=== PATIENT | female | born 1990 ===

== ENCOUNTER 2018-03-07 01:22 | Inpatient (IN) | payer MEDICAID, OTHER ==
[2018-03-07 01:22] VITALS: BMI 27.4
[2018-03-07 01:39] VITALS: O2SAT 97
[2018-03-07] MEDS ORDERED: Bacitracin Ointment 30 GM TUBE TOP PRN (03:49)
--- NOTE | 2018-03-07 03:53 | C.PDOC ---
History Of Present Illness 27 year old female brought in by EMS, transferred from [facility] for psychiatric admission. Patient has a history of depression. On arrival patient complains of irritation to her genital area after having catheter placed. No fever. Time Seen by Provider: 03/07/18 01:44 Chief Complaint (Nursing): Psychiatric Evaluation History Per: Patient History/Exam Limitations: no limitations Onset/Duration Of Symptoms: Days Current Symptoms Are (Timing): Still Present Past Medical History Reviewed: Historical Data, Nursing Documentation, Vital Signs Vital Signs: Last Vital Signs Temp 98.2 F 03/07/18 01:34 Pulse 75 03/07/18 01:34 Resp 20 03/07/18 01:34 BP 120/82 03/07/18 01:34 Pulse Ox 97 03/07/18 03:55 - Medical History PMH: Anemia, Anxiety, Bipolar Disorder, Depression, Seizures - [employer] Procedures MONITORING NOS (08/19/14) Family History: States: Unknown Family Hx - Social History Hx Tobacco Use: No Hx Alcohol Use: Yes Hx Substance Use: Yes - Immunization History Hx Tetanus Toxoid Vaccination: No Hx Influenza Vaccination: No Hx Pneumococcal Vaccination: No Review Of Systems Constitutional: Negative for: Fever Genitourinary: Positive for: Other (discomfort near catheter placement) Psych: Positive for: Depression Physical Exam - Physical Exam Appears: Non-toxic, No Acute Distress Skin: Warm, Dry, No Rash Head: Normacephalic, Abrasion (multiple abrasions and excoriations to the head and neck) Eye(s): bilateral: Normal Inspection Oral Mucosa: Moist Neck: Normal ROM Chest: Symmetrical Cardiovascular: Rhythm Regular, No Murmur Respiratory: Normal Breath Sounds, No Rales, No Rhonchi, No Wheezing Gastrointestinal/Abdominal: Soft, No Tenderness, No Guarding Pelvic: Normal External Exam (with no swelling to the urethra, no bleeding) Extremity: Bilateral: Atraumatic, Normal Color And Temperature, Normal ROM Neurological/Psych: Oriented x3 ED Course And Treatment O2 Sat by Pulse Oximetry: 97 (RA) Pulse Ox Interpretation: Normal Medical Decision Making Medical Decision Making: Time: 2:37 Plan: Patient already evaluated and medically cleared for psychiatric admission. Dr. Dowd to take over care. Disposition Discussed With : Ulysses Dowd Doctor Will See Patient In The: Hospital - Disposition Disposition: HOSPITALIZED Disposition Time: 02:37 Condition: GOOD - Clinical Impression Clinical Impression: Depression - PA / [employer] / Resident Statement MD/DO has reviewed & agrees with the documentation as recorded. - Scribe Statement The provider has reviewed the documentation as recorded by the Scribe (Billie Borja) All medical record entries made by the Scribe were at my direction and personally dictated by me. I have reviewed the chart and agree that the record accurately reflects my personal performance of the history, physical exam, medical decision making, and the department course for this patient. I have also personally directed, reviewed, and agree with the discharge instructions and disposition.
--- NOTE | 2018-03-07 05:30 | PCM.BM ---
<KearaDoc - Last Filed: 03/07/18 05:29> Treatment Plan Problems - Problems identified on initial assessmt Depression Date Initiated: 03/07/18 Time Initiated: 03:15 Assessment reference: NA Status: Active Self harm Date Initiated: 03/07/18 Time Initiated: 03:15 Assessment reference: NA Status: Active Treatment assets and liabiliti Patient Assests: negotiates basic needs Patient Liabilities: poor support system, substance abuse (Cocaine, THC) - Milieu Protocol Maintain good personal hygiene: daily Encourage regular showers, daily Remind patient to perform daily oral care, every shift Assist patient to perform ADL's Conduct patient checks and document Observation sheet: Q15 minutes Maintain personal safety: every shift Educate patient to report safety concerns to staff, every shift Monitor environment for contraband/sharps Medication safety: Monitor for expected outcome, potential side effects: every shift, Assess barriers to learning: every shift, Assess readiness for medication education: every shift <Flash Jean - Last Filed: 03/08/18 10:57> - Diagnosis (1) Bipolar 1 disorder, depressed, severe Status: Acute Interventions: 03/08/18 10:58 * Assess/adjust medications daily and /or as needed * See patient on an individual basis 7x/week to assess level of manic behaviors and stability * Discuss risks, benefits, side effects and alternatives of medications * (2) Alcohol intoxication Status: Acute Interventions: 03/08/18 10:58 * Assess 7x/week regarding severity of withdrawal * Educate regarding risks, benefits, side effects and alternatives of medications * Use Motivational Interviewing for abstinence * Use CBT for relapse prevention * Medication management for withdrawal symptoms * Encourage medication assisted treatment * <Celia Alexander - Last Filed: 03/08/18 11:38> Family Contact Family involvement: Family/SO is involved Family contact: Patient declines to allow family contact at present - Goals for Treatment Patient goals for treatment: "I need to go to therapy." Discharge/Continuing Care - Education Needs Education Needs: Patient Medication, Patient Coping Skills - Discharge Discharge Criteria: Tolerates medication w/o severe side effects, Free of Suicidal thoughts, Reduction of target symptoms Discharge to:: Home - Treatment Team Participation Discussed with Family/SO: No Was Patient/Family/SO present at Treatment Team Meeting: Yes
[2018-03-07 06:26] VITALS: RESP 20
--- NOTE | 2018-03-07 10:49 | PCM.PSYCH ---
Initial Psychiatric Evaluation - Initial Psychiatric Evaluation Type of Admission: Voluntary Legal Status: Capacity Chief Complaint (in patient's own words): "I was depressed." History of Present Illness and Precipitating Events: This is a 27 year old female, who is employed and lives with joleen, who transferred from [facility] for psychiatric admission. She went to the ED because she was depressed and she self-harmed. Patient stated she heard something that made her feel depressed so she started drinking. She states she does not remember what happened after she started drinking. Patient has multiple scratches and deep lacerations on her face and around her neck. She states she has been feeling very anxious lately. She has a lot of thoughts running through her head and she cannot sleep at night. She states she has had days where she will not sleep for 3 days and then will crash. When she crashes, she states she feels very depressed. At night, when she cannot sleep, she states she will watch tv, walk her dog, or wake up her fiance to talk. Patient feels this is impacting her relationship with her joleen. Patient denies paranoia, visual hallucinations, and auditory hallucinations. Patient has past history of psychiatric hospitalization at age of [age] years old. Patient stated she followed up with a psychiatrist following discharge but has not seen a doctor in several months. At age 20, patient overdosed on Ibuprofen because she was feeling depressed her father was being deported. Patient states she uses marijuana to help with her anxiety. Patient states she does not remember taking cocaine and does not know why it was in her system. Patient states she stopped drinking 7 months ago and last night was her first drink. She does not know how much alcohol she consumed. medical history: seizure disorder psych history: Psychiatric Admission at age 20y/o Social history: Works as a Credit Clerk. Lives with joleen and a friend. Current Medications: Active Medications Generic Name Dose Route Start Last Admin Trade Name Freq PRN Reason Stop Dose Admin Bacitracin 1 gm 03/07/18 03:49 Bacitracin TOP Q6H PRN superficial cut Past Psychiatric History - Past Psychiatric History Previous Treatment History: Inpatient At [facility] hospital: [facility] Date: 09/20/11 Duration: 3 days Nature of Treatment: Depression Pertinent Medical Hx (Current Medical&Sleep Prob, Allergies): Allergies Allergy/AdvReac Type Severity Reaction Status Date / Time No Known Allergies Allergy Verified 08/19/17 13:54 Gabapentin 1 tab PO DAILY 03/07/18 Klonopin 1 tab PO DAILY 03/07/18 Lisinopril 1 tab PO DAILY 03/07/18 lamoTRIgine [LaMICtal] 25 mg PO DAILY 03/07/18 Review of Systems - Review of Systems All systems: reviewed and no additional remarkable complaints except - Psychiatric Psychiatric: Abnormal Sleep Pattern, Anxiety, Change in Appetite, Depression, Irritability, Mood Swings, Suicidal Ideation. absent: Auditory Hallucinations, Hallucinations, Homicidal Ideation, Paranoia, Visual Hallucinations Mental Status Examination - Personal Presentation Personal Presentation: Looks stated age Additional comments: Multiple abrasions and lacerations on face and around neck. - Affect Affect: Broad, Depressed - Motor Activity Motor Activity: Calm - Reliability in Providing Information Reliability in Providing Information: Fair - Speech Speech: Organized - Mood Mood: Depressed, Anxious - Formal Thought Process Formal Thought Process: Flight of ideas - Obsessions/Compulsions Obsessions: No Compulsions: No - Cognitive Functions Orientation: Person, Place, Situation Sensorium: Alert Attention/Concentration: Attentive Abstract Thinking: [place] Estimate of Intelligence: Below average Judgement: Imparied, as evidence by: Poor judgement, Imparied, as evidence by: Lack of insight into illness - Risk Risk: Suicidal, Diminished functioning - Strength & Assets Inventory Strength & Assets Inventory: Family support DSM 5 DX - DSM 5 DSM 5 Diagnosis: Bipolar Disorder, mixed severe without psychotic features Alcohol use disorder moderate - Recommended/Plan of Treatment Treatment Recommendations and Plan of Treatment: Bipolar Disorder, mixed severe without psychotic features Alcohol use disorder moderate Start Depakote 250mg BID Start Trazodone 50mg for sleep Neurontin 100 mg PO TID Ativan 1 mg PO Q6 hr prn All risks, benefits and alternatives of the meds discussed, and the pt agreed and understood. Attend groups and activities Individual therapy daily Psychoeducation and support daily Encourage compliance with meds and after care Refer to outpatient program Teach healthy lifestyle methods, i.e. diet, exercise, meditation - Smoking Cessation Smoking Cessation Initiated: No
[2018-03-07] MEDS: Divalproex 250 mg DR Tab PO SCH ×2 (14:03→17:18)
[2018-03-08] MEDS: Divalproex 250 mg DR Tab PO SCH (10:40)
--- NOTE | 2018-03-08 10:57 | PCM.PYCHPN ---
Psychiatric Progress Note - Psychiatric Progress Note Patient seen today, length of contact: 15 min Patient Chief Complaint: "I m still feeling depressed." Problems Identified/Issues Discussed: Patient seen and evaluated, chart reviewed and discussed with the nurse. As per the staff, patient still appears depressed and withdrawn. Patient still reports depressed mood and reports at times feelings of hopelessness or helplessness. she reports some improvement in her racing thoughts, irritability and agitation. She reports headaches from the medications. She denies any auditory or visual hallucinations or any psychotic symptoms. She is compliant with medications and denies any side effects. She needs some more time for stabilization. Supportive therapy and psychoeducation were given. Medication Change: Yes (Increase Depakote) Medical Record Reviewed: Yes Mental Status Examination - Cognitive Function Orientation: Person, Place, Situation Memory: Intact Attention: WNL Concentration: Poor Association: WNL Fund of Knowledge: Poor - Mood Mood: Depressed, Anxious - Affect Affect: Broad, Depressed - Speech Speech: Soft - Formal Thought Process Formal Thought Process: Flight of ideas - Suicidal Ideation Suicidal Ideation: No - Homicidal Ideation Homicidal Ideation: No Goal/Treatment Plan - Goal/Treatment Plan Need for Continued Stay: Severe depression anxiety, Severe functional impairment Progress Toward Problem(s) and Goals/Treatment Plan: Bipolar Disorder, mixed severe without psychotic features Alcohol use disorder moderate -Increase Depakote 500mg BID -DC Trazodone 50mg for sleep -Start Seroquel 50 mg by mouth daily at bedtime -Neurontin 100 mg PO TID -Ativan 1 mg PO Q6 hr prn -All risks, benefits and alternatives of the meds discussed, and the pt agreed and understood. -Attend groups and activities -Individual therapy daily -Psychoeducation and support daily -Encourage compliance with meds and after care -Refer to outpatient program -Teach healthy lifestyle methods, i.e. diet, exercise, meditation - Smoking Cessation Smoking Cessation Initiated: No
[2018-03-08] MEDS: Divalproex 500 mg DR Tab PO SCH (17:51)
[2018-03-09 06:17] VITALS: TEMP 97.6
[2018-03-09 08:57] VITALS: BP 109/74; PULSE 63
--- NOTE | 2018-03-09 10:46 | PCM.PYCHDC ---
Mental Status Examination - Mental Status Examination Orientation: Person, Place, Situation, Time Memory: Intact Mood: Neutral Affect: Constricted Speech: Soft Attention: WNL Concentration: WNL Association: WNL Fund of Knowledge: WNL Formal Thought Process: No Impairment Description of patient's judgement and insight: good, fair Psychotic Thoughts and Behaviors: denies any AVH Suicidal Ideation: No Current Homicidal Ideation?: No Discharge Summary - Discharge Note Reason for Hospitalization: This is a 27 year old female, who is employed and lives with joleen, who transferred from [facility] for psychiatric admission. She went to the ED because she was depressed and she self-harmed. Patient stated she heard something that made her feel depressed so she started drinking. She states she does not remember what happened after she started drinking. Patient has multiple scratches and deep lacerations on her face and around her neck. She states she has been feeling very anxious lately. She has a lot of thoughts running through her head and she cannot sleep at night. She states she has had days where she will not sleep for 3 days and then will crash. When she crashes, she states she feels very depressed. At night, when she cannot sleep, she states she will watch tv, walk her dog, or wake up her fiance to talk. Patient feels this is impacting her relationship with her fiance. Patient denies paranoia, visual hallucinations, and auditory hallucinations. Patient has past history of psychiatric hospitalization at age of [age] years old. Patient stated she followed up with a psychiatrist following discharge but has not seen a doctor in several months. At age 20, patient overdosed on Ibuprofen because she was feeling depressed her father was being deported. Patient states she uses marijuana to help with her anxiety. Patient states she does not remember taking cocaine and does not know why it was in her system. Patient states she stopped drinking 7 months ago and last night was her first drink. She does not know how much alcohol she consumed. Psychiatric History (includes Medical, Family, Personal Hx): Depression Consultations:: List each consultation separately and include: 1. Reason for request. 2. Findings. 3. Follow-up Summary of Hospital Course include:: 1. Description of specific treatment plan utilized for patients during their course of treatmen. 2. Summarize the time- course for resolution of acute symptoms and/or regressed behaviors. 3. Describe issues identified and worked on during hospitalization. 4. Describe medication utilized. 5. Describe medical problems identified and treated. 6. Reassessment of suicide risk Summary of Hospital Course: This is a 27 year old female, who is employed and lives with joleen, who transferred from [facility] for psychiatric admission. She went to the ED because she was depressed and she self-harmed. Patient stated she heard something that made her feel depressed so she started drinking. She states she does not remember what happened after she started drinking. Patient has multiple scratches and deep lacerations on her face and around her neck. She states she has been feeling very anxious lately. She has a lot of thoughts running through her head and she cannot sleep at night. She states she has had days where she will not sleep for 3 days and then will crash. When she crashes, she states she feels very depressed. At night, when she cannot sleep, she states she will watch tv, walk her dog, or wake up her fiance to talk. Patient feels this is impacting her relationship with her fililliam. Patient denies paranoia, visual hallucinations, and auditory hallucinations. Patient has past history of psychiatric hospitalization at age of [age] years old. Patient stated she followed up with a psychiatrist following discharge but has not seen a doctor in several months. At age 20, patient overdosed on Ibuprofen because she was feeling depressed her father was being deported. Patient states she uses marijuana to help with her anxiety. Patient states she does not remember taking cocaine and does not know why it was in her system. Patient states she stopped drinking 7 months ago and last night was her first drink. She does not know how much alcohol she consumed. 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 - Diagnosis (1) Bipolar 1 disorder, depressed, severe Current Visit: Yes Status: Acute (2) Alcohol intoxication Current Visit: No Status: Acute - Final Diagnosis (DSM 5) Condition upon Discharge: GOOD DSM 5: Bipolar Disorder, mixed severe without psychotic features Alcohol use disorder moderate Disposition: HOME/ ROUTINE Follow-up Treatment Plan: Bipolar Disorder, mixed severe without psychotic features Alcohol use disorder moderate -Increase Depakote 500mg BID -DC Trazodone 50mg for sleep -Start Seroquel 50 mg by mouth daily at bedtime -Neurontin 100 mg PO TID -Ativan 1 mg PO Q6 hr prn -All risks, benefits and alternatives of the meds discussed, and the pt agreed and understood. -Attend groups and activities -Individual therapy daily -Psychoeducation and support daily -Encourage compliance with meds and after care -Refer to outpatient program -Teach healthy lifestyle methods, i.e. diet, exercise, meditation Prescriptions/Medication Reconciliation: Divalproex [Depakote DR] 500 mg PO BID 14 Days #60 tcp QUEtiapine [SEROquel] 50 mg PO HS #14 tab - Smoking Cessation Smoking Cessation Medication prescribed: No - Antipsychotic Medications Pt discharged on 2 or more routine antipsychotic medications: No
[2018-03-09] MEDS: Divalproex 500 mg DR Tab PO SCH (11:03)
== END 2018-03-09 12:02 | disposition home or self-care (01) | DRG 430 ==
LOC: C.ER 01:22 → C.5E 02:37
PROVIDERS: ADMIT Psychiatry & Neurology Psychiatry; ATTEND Psychiatry & Neurology Psychiatry
DX: F31.63 Bipolar disorder, current episode mixed, severe, without psychotic features (principal); F10.220 Alcohol dependence with intoxication, uncomplicated; F41.9 Anxiety disorder, unspecified; G40.909 Epilepsy, unspecified, not intractable, without status epilepticus; S01.81XA Laceration without foreign body of other part of head, initial encounter; S11.91XA Laceration without foreign body of unspecified part of neck, initial encounter; X78.9XXA Intentional self-harm by unspecified sharp object, initial encounter; Y90.9 Presence of alcohol in blood, level not specified

== ENCOUNTER 2018-04-19 16:20 | Emergency (ER) | payer OTHER ==
[2018-04-19 16:21] VITALS: BMI 27.4
[2018-04-19 16:36] VITALS: RESP 20; TEMP 98.5
[2018-04-19 17:27] LABS: BASO % 0.6 % (0.0-2.0); EOS # 0.1 K/uL (0.0-0.7); EOS % 2.2 % (0.0-4.0); HEMOGLOBIN 12.7 g/dL (11.0-16.0); LYMPH # 1.6 K/uL (1.0-4.3); LYMPH % 29.1 % (20.0-40.0); MEAN CELL VOLUME 80.4 fL (81.0-99.0); MEAN CORPUSCULAR HEMOGLOBIN 27.8 pg (27.0-31.0); MEAN CORPUSCULAR HGB CONC 34.6 g/dL (33.0-37.0); MEAN PLATELET VOLUME 10.4 fL (7.2-11.7); MONO # 0.5 K/uL (0.0-0.8); MONO % 8.5 % (0.0-10.0); NEUT # 3.3 K/uL (1.8-7.0); NEUT % 59.6 % (50.0-75.0); RBC 4.56 Mil/uL (3.80-5.20); RED CELL DISTRIBUTION WIDTH 15.7 % (11.5-14.5); WHITE BLOOD COUNT 5.6 K/uL (4.8-10.8)
[2018-04-19 17:31] LABS: SQUAMOUS EPITHIAL 11 /hpf (0-5); URINE BILIRUBIN NEGATIVE (NEGATIVE); URINE BLOOD NEGATIVE (NEGATIVE); URINE CLARITY Hazy (Clear); URINE COLOR Yellow (YELLOW); URINE GLUCOSE (UA) NORMAL (Normal); URINE HYALINE CAST 0-2 /lpf (0-2); URINE LEUKOCYTE ESTERASE TRACE Leu/uL (Negative); URINE PROTEIN NEGATIVE (NEGATIVE); URINE UROBILINOGEN NORMAL mg/dL (0.2-1.0)
[2018-04-19 17:32] LABS: HCG,QUALITATIVE URINE NEGATIVE (NEGATIVE)
--- NOTE | 2018-04-19 17:36 | C.PDOC ---
History Of Present Illness 27 year old female presents to the ED for evaluation of intermittent sternal and right-sided chest pain which began 3 days ago. Patient describes a "squeezing" sensation which occurs while at rest. Patient also reports shortness of breath with exertion, particularly when walking up a flight of stairs. She denies fever, chills, cough, abdominal pain, nausea, vomiting, recent surgeries, recent prolonged air travel, history of DVT/PE, history of cardiac problems in immediate family. Time Seen by Provider: 04/19/18 16:44 Chief Complaint (Nursing): Chest Pain History Per: Patient History/Exam Limitations: no limitations Onset/Duration Of Symptoms: Days (3), Intermittent Episodes Current Symptoms Are (Timing): Still Present Quality: Squeezing, "Pain" Exacerbating Factors: Exertion Additional History Per: Patient Past Medical History Reviewed: Historical Data, Nursing Documentation, Vital Signs Vital Signs: Last Vital Signs Temp 98.5 F 04/19/18 16:34 Pulse 82 04/19/18 16:34 Resp 20 04/19/18 16:34 BP 133/87 04/19/18 16:34 Pulse Ox 99 04/19/18 18:25 - Medical History PMH: Anemia, Anxiety, Bipolar Disorder, Depression, HTN (" SAID I CAN STOP TAKING BP MEDS 09/2017"), Seizures Surgical History: No Surg Hx - [facility] Procedures MONITORING NOS (08/19/14) Family History: States: Unknown Family Hx - Social History Hx Tobacco Use: No Hx Alcohol Use: Yes Hx Substance Use: Yes - Immunization History Hx Tetanus Toxoid Vaccination: No Hx Influenza Vaccination: No Hx Pneumococcal Vaccination: No Review Of Systems Constitutional: Negative for: Fever, Chills Cardiovascular: Positive for: Chest Pain (right-sided ), Other (sternal pain ) Respiratory: Positive for: SOB with Excertion. Negative for: Cough Gastrointestinal: Negative for: Nausea, Vomiting, Abdominal Pain Skin: Negative for: Other (leg swelling ) Physical Exam - Physical Exam Appears: Non-toxic, No Acute Distress Skin: Normal Color, Warm, Dry Head: Atraumatic, Normacephalic Eye(s): bilateral: Normal Inspection Oral Mucosa: Moist Neck: Supple Chest: Symmetrical, No Deformity, No Tenderness Cardiovascular: Rhythm Regular, No Murmur Respiratory: Normal Breath Sounds, No Rales, No Rhonchi, No Wheezing Extremity: Normal ROM, Capillary Refill (less than 2 seconds ) Neurological/Psych: Oriented x3, Normal Speech, Normal Cognition ED Course And Treatment - Laboratory Results Result Diagrams: 04/19/18 17:19 04/19/18 17:19 O2 Sat by Pulse Oximetry: 99 (on RA ) Pulse Ox Interpretation: Normal Progress Note: Bloodwork, urinalysis, CXR, EKG ordered and reviewed. Patient given Flexeril PO. Disposition Counseled Patient/Family Regarding: Studies Performed, Diagnosis, Need For Followup, Rx Given - Disposition Referrals: Varun Ward MD [Staff Provider] - Disposition: HOME/ ROUTINE Disposition Time: 18:40 Condition: STABLE Additional Instructions: FOLLOW UP WITH YOUR DOCTOR IN 1-2 DAYS USE MEDICATION WITH IBUPROFEN NEEDED RETURN TO ER IF SYMPTOMS WORSEN Prescriptions: Cyclobenzaprine [Flexeril] 10 mg PO BID PRN #15 tab PRN Reason: Muscle Spasm Instructions: Chest Pain That Is Not Caused by the Heart (DC) Forms: [email or web address] (Citizen Of [place]) Print Language: POLISH - Clinical Impression Clinical Impression: Non-cardiac chest pain, Anxiety - Scribe Statement The provider has reviewed the documentation as recorded by the Scribe (Magalis Pablo) Provider Attestation: All medical record entries made by the Scribe were at my direction and personally dictated by me. I have reviewed the chart and agree that the record accurately reflects my personal performance of the history, physical exam, medical decision making, and the department course for this patient. I have also personally directed, reviewed, and agree with the discharge instructions and disposition.
[2018-04-19 17:48] LABS: ALB/GLOB RATIO 1.5 (1.0-2.1); ALT/SGPT 25 U/L (9-52); AST/SGOT 24 U/L (14-36); BLOOD UREA NITROGEN 11 mg/dL (7-17); CALCIUM 9.1 mg/dl (8.6-10.4); GFR AFRICAN-AMERICAN > 60; GFR NON-AFRICAN AMERICAN > 60
[2018-04-19 17:59] LABS: CK-MB 0.26 ng/mL (0.0-3.38)
[2018-04-19 18:50] VITALS: BP 124/84; PULSE 87; O2SAT 98
--- NOTE | 2018-04-19 18:53 | RAD ---
PROCEDURE: CHEST RADIOGRAPH, 1 VIEW HISTORY: cp COMPARISON: None available. FINDINGS: LUNGS: Clear. PLEURA: No pneumothorax or pleural fluid seen. CARDIOVASCULAR: Normal. OSSEOUS STRUCTURES: No significant abnormalities. VISUALIZED UPPER ABDOMEN: Normal. OTHER FINDINGS: None. IMPRESSION: No active disease.
--- NOTE | 2018-04-20 13:57 | CARD ---
APPROVED REPORT EKG Measurement Heart [id number] <Conclusion> Normal sinus rhythm Incomplete right bundle branch block Borderline ECG
== END 2018-04-19 18:50 | disposition home or self-care (01) ==
LOC: C.ER 16:20
DX: F41.9 Anxiety disorder, unspecified (principal); R07.89 Other chest pain; I10 Essential (primary) hypertension